=== PATIENT | female | born 1985 | race Caucasian/White ===

== ENCOUNTER → 2019-11-27 14:15 | Outpatient (BNVA) | payer OTHER, SELFPAY | PROVIDERS: Family Provider Family Medicine; PCP Family Medicine; Visit Provider Nurse Practitioner Psychiatric/Mental Health | DX: F33.3 Major depressive disorder, recurrent, severe with psychotic symptoms (principal); F43.12 Post-traumatic stress disorder, chronic; F41.1 Generalized anxiety disorder; F17.210 Nicotine dependence, cigarettes, uncomplicated | CPT/HCPCS: 99214 ==

== ENCOUNTER → 2020-01-01 09:15 | Outpatient (BNVA) | payer OTHER, SELFPAY | PROVIDERS: Family Provider Family Medicine; PCP Family Medicine; Visit Provider Nurse Practitioner Psychiatric/Mental Health | DX: F33.3 Major depressive disorder, recurrent, severe with psychotic symptoms (principal); F43.12 Post-traumatic stress disorder, chronic; F41.1 Generalized anxiety disorder; F17.210 Nicotine dependence, cigarettes, uncomplicated | CPT/HCPCS: 99214 ==

== ENCOUNTER → 2020-01-29 08:27 | Outpatient (BNVA) | payer OTHER, SELFPAY | PROVIDERS: Family Provider Family Medicine; PCP Family Medicine; Visit Provider Nurse Practitioner Psychiatric/Mental Health | DX: F33.3 Major depressive disorder, recurrent, severe with psychotic symptoms (principal); F43.12 Post-traumatic stress disorder, chronic; F41.1 Generalized anxiety disorder; F17.210 Nicotine dependence, cigarettes, uncomplicated | CPT/HCPCS: 99213 ==

== ENCOUNTER → 2020-04-22 08:47 | Outpatient (BNVA) | payer OTHER, SELFPAY | PROVIDERS: Family Provider Family Medicine; PCP Family Medicine; Visit Provider Nurse Practitioner Psychiatric/Mental Health | DX: F33.3 Major depressive disorder, recurrent, severe with psychotic symptoms (principal); F43.12 Post-traumatic stress disorder, chronic; F41.1 Generalized anxiety disorder; F17.210 Nicotine dependence, cigarettes, uncomplicated | CPT/HCPCS: 99214 ==

== ENCOUNTER → 2020-05-21 07:33 | Outpatient (BNVA) | payer OTHER, SELFPAY | PROVIDERS: Family Provider Family Medicine; PCP Family Medicine; Visit Provider Nurse Practitioner Psychiatric/Mental Health | DX: F33.3 Major depressive disorder, recurrent, severe with psychotic symptoms (principal); F43.12 Post-traumatic stress disorder, chronic; F41.1 Generalized anxiety disorder; F17.210 Nicotine dependence, cigarettes, uncomplicated | CPT/HCPCS: 99213 ==

== ENCOUNTER → 2020-08-18 08:26 | Outpatient (BNVA) | payer OTHER, SELFPAY | PROVIDERS: Family Provider Family Medicine; PCP Family Medicine; Visit Provider Nurse Practitioner Psychiatric/Mental Health | DX: F33.3 Major depressive disorder, recurrent, severe with psychotic symptoms (principal); F43.12 Post-traumatic stress disorder, chronic; F41.1 Generalized anxiety disorder; F17.210 Nicotine dependence, cigarettes, uncomplicated | CPT/HCPCS: 99213 ==

== ENCOUNTER → 2020-09-12 07:22 | Outpatient (BNVA) | payer OTHER, SELFPAY | PROVIDERS: Family Provider Family Medicine; PCP Family Medicine; Visit Provider Nurse Practitioner Psychiatric/Mental Health | DX: F33.3 Major depressive disorder, recurrent, severe with psychotic symptoms (principal); F43.12 Post-traumatic stress disorder, chronic; F41.1 Generalized anxiety disorder; F17.210 Nicotine dependence, cigarettes, uncomplicated | CPT/HCPCS: 99214 ==

== ENCOUNTER 2020-11-06 07:35 | Outpatient (RCR) | payer OTHER, SELFPAY | END 2020-11-19 23:00 | disposition home or self-care (01) | LOC: SOT 07:35 | PROVIDERS: PCP Family Medicine; Visit Provider Physician Assistant | DX: M25.531 Pain in right wrist (principal) | CPT/HCPCS: 97110; 97167 ==

== ENCOUNTER → 2020-11-25 09:57 | Outpatient (BNVA) | payer OTHER, SELFPAY | PROVIDERS: PCP Family Medicine; Visit Provider Nurse Practitioner Psychiatric/Mental Health | DX: F33.3 Major depressive disorder, recurrent, severe with psychotic symptoms (principal); F43.12 Post-traumatic stress disorder, chronic; F41.1 Generalized anxiety disorder; F17.210 Nicotine dependence, cigarettes, uncomplicated | CPT/HCPCS: 99214 ==

== ENCOUNTER → 2020-12-04 09:37 | Outpatient (BNVA) | payer OTHER, SELFPAY | PROVIDERS: PCP Family Medicine; Visit Provider Nurse Practitioner Psychiatric/Mental Health | DX: F33.3 Major depressive disorder, recurrent, severe with psychotic symptoms (principal); F43.12 Post-traumatic stress disorder, chronic; F41.1 Generalized anxiety disorder; F17.210 Nicotine dependence, cigarettes, uncomplicated; G47.00 Insomnia, unspecified | CPT/HCPCS: 99214 ==

== ENCOUNTER 2020-12-16 11:45 | Outpatient (CLI) | payer OTHER, SELFPAY ==
--- NOTE | 2020-12-16 11:53 | XR_ITS ---
WS: [id number] Exam: XR lumbar spine min 4V [id number] Date/Time of Exam: 12/16/2020 12:04 PM Reason For Exam: CHRONIC LOW BACK PAIN No fracture or dislocation. Disc spaces appear to be well preserved. Posterior elements are intact. N o instability or subluxation noted on flexion or extension views. Slight dextroscoliosis of may be po sitional. XR/XR lumbar spine min 4V [id number] IMPRESSION: 1. No fracture or dislocation. No instability identified.
== END 2020-12-16 11:46 | disposition home or self-care (01) ==
PROVIDERS: PCP Family Medicine; Visit Provider Family Medicine
DX: M54.5 Low back pain (principal); G89.29 Other chronic pain
CPT/HCPCS: 72110

== ENCOUNTER → 2020-12-26 07:31 | Outpatient (BNVA) | payer OTHER, SELFPAY | PROVIDERS: PCP Family Medicine; Visit Provider Nurse Practitioner Psychiatric/Mental Health | DX: F33.3 Major depressive disorder, recurrent, severe with psychotic symptoms (principal); F43.12 Post-traumatic stress disorder, chronic; F41.1 Generalized anxiety disorder; F17.210 Nicotine dependence, cigarettes, uncomplicated; G47.00 Insomnia, unspecified | CPT/HCPCS: 99214 ==

== ENCOUNTER → 2021-01-21 08:21 | Outpatient (BNVA) | payer OTHER, MEDICAID, SELFPAY | PROVIDERS: PCP Family Medicine; Visit Provider Nurse Practitioner Psychiatric/Mental Health | DX: F31.64 Bipolar disorder, current episode mixed, severe, with psychotic features (principal); F43.12 Post-traumatic stress disorder, chronic; F41.1 Generalized anxiety disorder; F17.210 Nicotine dependence, cigarettes, uncomplicated; Z03.89 Encounter for observation for other suspected diseases and conditions ruled out; G47.00 Insomnia, unspecified | CPT/HCPCS: 99214 ==

== ENCOUNTER 2021-01-22 10:28 | Outpatient (CLI) | payer OTHER, SELFPAY ==
--- NOTE | 2021-01-22 13:11 | ECG_ITS ---
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 Measurements Intervals [place] Rate: 78 P: 45 IA: 177 QRS: 52 QRSD: 89 T: 43 QT: 373 QTc: 426 Interpretive Statements SINUS RHYTHM WITH ARTIFACT NONSPECIFIC T-WAVE ABNORMALITY No previous ECG available for comparison Electronically Signed On 01-22-2021 17:26:08 CDT by Bethany Cr M.D. [id number]
== END 2021-01-22 10:29 | disposition home or self-care (01) ==
PROVIDERS: PCP Family Medicine; Visit Provider Nurse Practitioner Psychiatric/Mental Health
DX: Z01.818 Encounter for other preprocedural examination (principal)
CPT/HCPCS: 93005

== ENCOUNTER → 2021-02-06 11:08 | Outpatient (BNVA) | payer OTHER, SELFPAY | PROVIDERS: PCP Family Medicine; Visit Provider Nurse Practitioner Psychiatric/Mental Health | DX: F31.64 Bipolar disorder, current episode mixed, severe, with psychotic features (principal); F43.12 Post-traumatic stress disorder, chronic; F41.1 Generalized anxiety disorder; F17.210 Nicotine dependence, cigarettes, uncomplicated; Z03.89 Encounter for observation for other suspected diseases and conditions ruled out; G47.00 Insomnia, unspecified | CPT/HCPCS: 99214 ==

== ENCOUNTER → 2021-03-06 09:26 | Outpatient (BNVA) | payer OTHER, SELFPAY | PROVIDERS: PCP Family Medicine; Visit Provider Nurse Practitioner Psychiatric/Mental Health | DX: F31.64 Bipolar disorder, current episode mixed, severe, with psychotic features (principal); F43.12 Post-traumatic stress disorder, chronic; F41.1 Generalized anxiety disorder; F17.210 Nicotine dependence, cigarettes, uncomplicated; G47.00 Insomnia, unspecified | CPT/HCPCS: 99214 ==

== ENCOUNTER → 2022-05-26 10:03 | Outpatient (BNVA) | payer OTHER, SELFPAY | PROVIDERS: PCP Family Medicine; Visit Provider Nurse Practitioner Psychiatric/Mental Health | DX: Z79.899 Other long term (current) drug therapy (principal); F31.64 Bipolar disorder, current episode mixed, severe, with psychotic features; F43.12 Post-traumatic stress disorder, chronic; G47.00 Insomnia, unspecified; F41.1 Generalized anxiety disorder | CPT/HCPCS: 80053; 80061; 83036 ==

== ENCOUNTER 2023-03-16 07:54 | Outpatient (CLI) | payer OTHER, SELFPAY ==
[2023-03-16 08:42] LABS: Estmated Average Glucose 120; Hemoglobin A1C 5.8 % (4.0-6.0)
[2023-03-16 08:58] LABS: Alanine Aminotransferase 20 U/L (0-33); Alkaline Phosphatase 117 U/L (35-105); Aspartate Amino Transferase 21 U/L (0-32); Blood Urea Nitrogen 7 mg/dL (6-20); Calcium 9.1 mg/dL (8.5-10.5); Carbon Dioxide 23 mmol/L (22-29); Chloride 101 mmol/L (98-107); Chol HDL Ratio 3.71 mg/dL (0.0-4.40); Cholesterol 156 mg/dL (0-200); Globulin 3.4 g/dL (1.3-4.6); Glomerular Filtration Rate 94.2 mL/min (90-130); Glucose 133 mg/dL (65-115); HDL Cholesterol 42 mg/dL (60-100); LDL Cholesterol Calculated 95 mg/dL (50-129); LDL HDL Ratio 2.26 RATIO (0.00-3.22); Osmolality Calculated 280 mOsm/kg (285-295); Sodium 135 mmol/L (136-145); Total Bilirubin 0.3 mg/dL (0.15-1.2); Total Protein 7.4 g/dL (6.6-8.7); Triglycerides 93 mg/dL (0-150)
== END 2023-03-16 07:55 | disposition home or self-care (01) ==
LOC: LAB 07:59
PROVIDERS: PCP Family Medicine; Visit Provider Nurse Practitioner Psychiatric/Mental Health
DX: R94.31 Abnormal electrocardiogram [ECG] [EKG] (principal); Z79.899 Other long term (current) drug therapy
CPT/HCPCS: 36415; 80053; 80061; 83036; 93005

== ENCOUNTER 2023-04-21 10:01 | Emergency (ER) | payer MEDICAID, SELFPAY ==
[2023-04-21 10:03] VITALS: BP 154/97; PULSE 74; RESP 16; TEMP 36.7; O2SAT 95; BMI 58.6
--- NOTE | 2023-04-21 10:12 | ECG_ITS ---
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 Measurements Intervals [place] Rate: 71 P: 29 PA: 153 QRS: 48 QRSD: 98 T: 55 QT: 408 QTc: 444 Interpretive Statements SINUS RHYTHM WITH OCCASIONAL VENTRICULAR PREMATURE COMPLEXES Compared to ECG 03/16/2023 08:25:12 Ventricular premature complex(es) now present Sinus arrhythmia no longer present T-wave abnormality no longer present Electronically Signed On 04-21-2023 11:22:43 CDT by Bethany Cr M.D. [id number]
[2023-04-21 11:37] LABS: Basophils # 0.1 10^3/uL (0.0-0.1); Basophils % 0.5 %; Eosinophils # 0.3 10^3/uL (0.0-0.8); Eosinophils % 2.8 %; Hematocrit 37.6 % (37.0-47.0); Hemoglobin 11.7 g/dL (11.5-15.3); Lymphocytes # 2.6 10^3/uL (0.8-4.8); Mean Corpuscular HGB Conc 31.1 g/dL (30.0-36.0); Mean Corpuscular Hemoglobin 27.5 pg (28.0-34.0); Mean Corpuscular Volume 88.5 fl (81-99); Mean Platelet Volume 9.5 fL (7.4-10.4); Monocytes # 0.7 10^3/uL (0.2-0.9); Monocytes % 5.9 %; Neutrophils # 7.67 10^3/uL (1.8-7.7); Neutrophils % 67.4 %; Nucleated Red Blood Cells % 0 %; Platelet Count 353 10^3/cmm (130-400); Red Blood Count 4.25 10^6/uL (4.1-5.3); Red Cell Distribution Width 14.5 % (12.1-15.1); White Blood Count 11.4 10^3/uL (4.0-10.0)
[2023-04-21 11:52] LABS: HCG, Serum Qual Negative (Negative)
[2023-04-21 12:03] LABS: Alanine Aminotransferase 19 U/L (0-33); Albumin Level 4.1 g/dL (3.5-5.2); Alkaline Phosphatase 102 U/L (35-105); Anion Gap 14.6 (5-19); Aspartate Amino Transferase 18 U/L (0-32); Blood Urea Nitrogen 9 mg/dL (6-20); Calcium 9.3 mg/dL (8.5-10.5); Carbon Dioxide 25 mmol/L (22-29); Chloride 101 mmol/L (98-107); Globulin 3.3 g/dL (1.3-4.6); Glomerular Filtration Rate 94.2 mL/min (90-130); Glucose 119 mg/dL (65-115); Osmolality Calculated 284 mOsm/kg (285-295); Potassium 3.6 mmol/L (3.5-5.1); Sodium 137 mmol/L (136-145); Thyroid Stimulating Hormone 2.07 uIU/mL (0.27-4.20); Total Bilirubin 0.3 mg/dL (0.15-1.2); Total Protein 7.4 g/dL (6.6-8.7)
[2023-04-21 12:36] LABS: Troponin(5th) Baseline 7 ng/L (0-10)
--- NOTE | 2023-04-21 12:50 | W.ED.CHESTPA ---
HPI - Chest Pain General: Chief Complaint: Chest Pain Stated Complaint: irregular hr Time Seen by Provider: 04/21/23 12:36 Source: patient Mode of arrival: ambulatory Limitations: no limitations History of Present Illness: Patient is a 37-year-old female presents to ED today with a complaint of heart palpitations intermittently over the past 3 months or so. Patient states she will have episodes lasting a few minutes of heart palpitations and feeling like her heart is fluttering and beating hard. She states she feels short of breath only when symptoms are present. In between episodes she is completely asymptomatic. She reportedly followed up with her primary care provider thought they might be related to anxiety so started her on BuSpar. She feels like symptoms worsened so this medication was discontinued. Patient is not having any symptoms at time of initial examination. She states she sought medical evaluation today because palpitations seem to be more frequent over the past few days. Patient states she does have a cardiology appointment scheduled for next month. MD complaint: other (palpitations) Onset (ago): month(s) Timing of current episode: episodic Prior episodes: Yes Onset: during rest Pain radiation: none Severity: mild Quality: other (palpitations) Relieving factors: nothing Exacerbating factors: nothing Associated symptoms: Reports dyspnea (only during episodes of palpitations) and palpitations; Deny fever(s), nausea, syncope or vomiting Treatment prior to arrival: none Risk Factors: Coronary artery disease risk factors: none Thoracic aortic dissection risk factors: none Related Data: On Oral Contraceptives: No Review of Systems Const: Denies: fever(s), chills, body aches, fatigue or malaise Card: Reports: palpitations; Denies: chest pain, irregular heart rhythm, edema, swelling of feet/ankles, lightheadedness, syncope, pre-syncope, dyspnea on exertion, orthopnea, leg pain with exertion or acrocyanosis Resp: Reports: dyspnea (only during episodes of palpitations); Denies: productive cough, non-productive cough, pain on inspiration or chest congestion GI: Denies: nausea or vomiting Neuro: Denies: headache(s) or dizziness PFS ED PFSH: Medical History Bipolar disorder, current episode mixed, severe, with psychotic features Chronic post-traumatic stress disorder Generalized anxiety disorder Insomnia Psychiatric care Unresolved grief Sudden loss of 3 yr old niece to cancer Social History Smoking and tobacco status: former smoker Quit status (tobacco): has quit using tobacco Year quit tobacco: 2020 Former quit date comment: Patient stopped smoking June 2021 Second hand smoke exposure: Yes Physical Exam Const: COMMON NORMALS: no acute distress, patient oriented x3, no limitations and alert GENERAL APPEARANCE: cooperative NUTRITIONAL APPEARANCE: obese morbidly obese (BMI over 58) ORIENTATION/CONSCIOUSNESS: Yes awake, Yes oriented to person, Yes oriented to place and Yes oriented to time Neck/C-Spine: COMMON NORMALS: no JVD Resp: COMMON NORMALS: normal respiratory effort and clear to auscultation bilaterally AUSCULTATION: clear to auscultation bilaterally Cardio: COMMON NORMALS: no JVD, regular rate and regular rhythm RATE: regular rate RHYTHM: regular rhythm Extremity: COMMON NORMALS: no clubbing, cyanosis or edema, no calf tenderness and no pedal edema Neuro: KEMAR COMA SCALE: document GCS findings [place] coma scale eye opening: Spontaneous [place] coma scale verbal response: Orientated [place] coma scale motor response: Obey commands Kemar coma scale total score: 15 COMMON NORMALS: patient oriented x3 SENSORIUM/ORIENTATION: Yes alert, Yes oriented to person, Yes oriented to place and Yes oriented to time Skin: COMMON NORMALS: no rashes or lesions noted GENERAL SKIN EXAM: no rashes or lesions noted Course Vital Signs: Vital signs: Vital Signs Temperature 98.0 F 04/21/23 10:03 Pulse Rate 71 04/21/23 13:07 Respiratory Rate 16 04/21/23 10:03 Blood Pressure 142/108 04/21/23 13:07 Pulse Oximetry 96 04/21/23 13:07 Oxygen Delivery Me thod Room Air 04/21/23 13:07 MDM - Chest Pain Medical Decision Making Patient here for intermittent palpitations over the past 3 months or so. Blood work here including CBC, CMP, TSH and troponins are negative. EKG showing sinus rhythm with occasional PVCs. Patient has a cardiology appointment scheduled for next month. I will place her on metoprolol 25 mg twice daily and she can follow-up as scheduled with cardiology. Return ED precautions given. Lab Data 04/21/23 11:27 04/21/23 11:27 Laboratory Results WBC 11.4 10^3/uL (4.0-10.0) H 04/21/23 11: RBC 4.25 10^6/uL (4.1-5.3) 04/21/23 11:27 Hgb 11.7 g/dL (11.5-15.3) 04/21/23 11:27 Hct 37.6 % (37.0-47.0) 04/21/23 11:27 MCV 88.5 fl (81-99) 04/21/23 11:27 MCH 27.5 pg (28.0-34.0) L 04/21/23 11:27 MCHC 31.1 g/dL (30.0-36.0) 04/21/23 11:27 RDW 14.5 % (12.1-15.1) 04/21/23 11:27 Plt Count 353 10^3/cmm (130-400) 04/21/23 11:27 MPV 9.5 fL (7.4-10.4) 04/21/23 11:27 Neut % (Auto) 67.4 % 04/21/23 11:27 Lymph % (Auto) 23.0 % 04/21/23 11:27 [place] % (Auto) 5.9 % 04/21/23 11:27 Eos % (Auto) 2.8 % 04/21/23 11:27 Baso % (Auto) 0.5 % 04/21/23 11:27 Neut # (Auto) 7.67 10^3/uL (1.8-7.7) 04/21/23 11:27 Lymph # (Auto) 2.6 10^3/uL (0.8-4.8) 04/21/23 11:27 [place] # (Auto) 0.7 10^3/uL (0.2-0.9) 04/21/23 11:27 Eos # (Auto) 0.3 10^3/uL (0.0-0.8) 04/21/23 11:27 Baso # (Auto) 0.1 10^3/uL (0.0-0.1) 04/21/23 11:27 Nucleated RBC % (auto) 0 % 04/21/23 11:27 Nucleated RBCs # 0.0 /100WBC 04/21/23 11:27 Sodium 137 mmol/L (136-145) 04/21/23 11:27 Potassium 3.6 mmol/L (3.5-5.1) 04/21/23 11:27 Chloride 101 mmol/L (98-107) 04/21/23 11:27 Carbon Dioxide 25 mmol/L (22-29) 04/21/23 11:27 Anion Gap 14.6 (5-19) 04/21/23 11:27 BUN 9 mg/dL (6-20) 04/21/23 11:27 Creatinine 0.7 mg/dL (0.5-0.9) 04/21/23 11:27 GFR Calculation 94.2 mL/min (90-130) 04/21/23 11:27 Glucose 119 mg/dL (65-115) H 04/21/23 11:27 Calculated Osmolality 284 mOsm/kg (285-295) L 04/21/23 11:27 Calcium 9.3 mg/dL (8.5-10.5) 04/21/23 11:27 Total Bilirubin 0.3 mg/dL (0.15-1.2) 04/21/23 11:27 AST 18 U/L (0-32) 04/21/23 11:27 ALT 19 U/L (0-33) 04/21/23 11:27 Alkaline Phosphatase 102 U/L (35-105) 04/21/23 11:27 Troponin T Baseline 7 ng/L (0-10) 04/21/23 11:27 Total Protein 7.4 g/dL (6.6-8.7) 04/21/23 11:27 Albumin 4.1 g/dL (3.5-5.2) 04/21/23 11:27 Globulin 3.3 g/dL (1.3-4.6) 04/21/23 11:27 TSH 2.07 uIU/mL (0.27-4.20) 04/21/23 11:27 HCG, Qual Negative (Negative) 04/21/23 11:27 Discharge Plan Discharge Patient Disposition: Home Clinical Impression: Palpitations Condition: Stable Prescriptions: New metoprolol tartrate 25 mg tablet 25 mg PO BID Qty: 60 0RF No Action pantoprazole [Protonix] 20 mg tablet,delayed release (DR/EC) 20 mg PO DAILY lurasidone [Latuda] 20 mg tablet 20 mg PO .6 pm Qty: 30 1RF Rx Instructions: Take one tablet at 6 pm, must administer with food (at least 350 calories) Discharge Orders: Discharge ED (Routine); Ordered 04/21/23 Ordered By: Belen Mora Referrals: Lambert Wagner MD [Primary Care Provider] - Patient Instructions: Heart Palpitations (DC) Activity Restrictions/Additional Instructions: As we discussed please continue current plan for follow-up with cardiology next month. We will start you on a medication to hopefully reduce the amount/episodes of palpitations you are having. You may monitor blood pressure at home-you need to discontinue medication for any unwanted side effects or if blood pressure runs below 110/70 or if you begin feeling lightheaded or dizzy. Coding Level of Care Code ED Platform Power Technician for Diana Bledsoe
--- NOTE | 2023-04-21 13:01 | PC.NURSE ---
Assumed care at 1300.
[2023-04-21 13:07] VITALS: BP 142/108; PULSE 71; O2SAT 96
[2023-04-21 13:28] VITALS: BP 152/108; PULSE 74; O2SAT 95
== END 2023-04-21 13:30 | disposition home or self-care (01) ==
PROVIDERS: Family Medicine; Emergency Provider Physician Assistant; PCP Family Medicine
DX: R00.2 Palpitations (principal); Z87.891 Personal history of nicotine dependence
CPT/HCPCS: 36415; 80053; 84443; 84484; 84703; 85025; 93005; 99285

== ENCOUNTER 2023-05-31 11:49 | Outpatient (CLI) | payer MEDICAID, SELFPAY ==
--- NOTE | 2023-05-31 12:00 | USCV_ITS ---
Concepción Mendoza Age: 37 Gender: F : 1985 Exam Date: 05/31/2023 12:00 Ordering Phys: Jay Bruce M.D ([email or web address]) Technologist: JESUS Exam Location: [facility] – [place] Indication: CHEST PAIN AND SOB BP: 130 / 80 HR: 61 Rhythm: Sinus Technical Quality: Adequate MEASUREMENTS (Male / Female) Normal Values 2D ECHO LV Diastolic Diameter PLAX 5.0 cm 4.2 - 5.9 / 3.9 - 5.3 cm LV Systolic Diameter PLAX 2.5 cm LV Chamber Size 2.6 cm IVS Diastolic Thickness 0.9 cm 0.6 - 1.0 / 0.6 - 0.9 cm IVS Systolic Thickness 1.3 cm LVPW Diastolic Thickness 0.9 cm 0.6 - 1.0 / 0.6 - 0.9 cm LVPW Systolic Thickness 1.7 cm RV Chamber Size 2.8 cm LVOT Diameter 2.0 cm LV Ejection Fraction 2D Teich 79.7 % LV Ejection Fraction MOD 2C 24.6 % LV Ejection Fraction 2C AL 26.9 % LA Diameter 2.7 cm LA Width 2.7 cm LA Height 4.6 cm RA Width 3.0 cm RA Height 3.7 cm Aorta at Sinotubular Diameter 3.0 cm IVC Diameter 1.7 cm M-MODE Aortic Annulus Diameter 3.7 cm LA Ao Ratio MM 0.9 MV E Point Septal Separation 0.8 cm DOPPLER AV Peak Velocity 148.0 cm/s LVOT Peak Velocity 107.0 cm/s AV Area Cont Eq vti 2.2 cm squared AV Area Cont Eq pk 2.3 cm squared MV Area PHT 2.6 cm squared Mitral E to A Ratio 1.8 MV E' Velocity 56.0 cm/s Mitral E to MV E' Ratio 6.4 Mitral E to LV E' Lateral Ratio 5.5 Mitral E to LV E' Septal Ratio 7.7 TR Peak Velocity 154.6 cm/s TR Peak Gradient 9.6 mmHg TR Mean Velocity 117.1 cm/s TR Mean Gradient 6.7 mmHg TR Velocity Time Integral 39.5 cm TV Peak E Velocity 53.0 cm/s Right Atrial Pressure 3.0 mmHg Pulmonary Artery Systolic Pressu 12.6 mmHg RV Acceleration Time 0.2 s RV Ejection Time 0.4 s RV AcT/ET 0.5 FINDINGS Left Ventricle Left ventricle is normal size. LV systolic function is grossly normal. Regional wall motion abnormalities cannot be accurately assessed because of poor ultrasonic windows Right Ventricle Grossly normal Right Atrium Normal in size Left Atrium Normal in size Mitral Valve Grossly normal Aortic Valve Grossly normal. No significant stenosis or regurgitation. Tricuspid Valve Trace tricuspid regurgitation. Insufficient TR jet to calculate RVSP Pulmonic Valve Not well visualized Pericardium Normal Aorta Normal in size IVC Normal in size CONCLUSIONS Technically limited quality echocardiogram because of poor ultrasonic windows. LV systolic function is grossly normal. Trace tricuspid regurgitation No comparison studies are available Jay Bruce MD (Electronically Signed) Final Date: 13 June 2023 11:05 S
== END 2023-05-31 11:50 | disposition home or self-care (01) ==
PROVIDERS: PCP Family Medicine; Visit Provider Internal Medicine
DX: R06.02 Shortness of breath (principal); R07.9 Chest pain, unspecified
CPT/HCPCS: 93306

== ENCOUNTER 2023-10-28 12:39 | Emergency (ER) | payer OTHER, SELFPAY ==
[2023-10-28 12:47] VITALS: BP 183/103; PULSE 88; RESP 18; TEMP 36.7; O2SAT 97; BMI 55.0
[2023-10-28 12:59] VITALS: BP 183/103; PULSE 97; RESP 21; O2SAT 97
--- NOTE | 2023-10-28 13:06 | ED.C_ITS ---
HPI - Psych 2 General: Chief Complaint: Psychiatric Symptoms Stated Complaint: Sent over for possible manic episode Time Seen by Provider: 10/28/23 12:45 Source: patient Mode of arrival: ambulatory Limitations: no limitations History of Present Illness: Patient is a 38-year-old female who states she was told to come to the ED by [facility] for evaluation/treatment of manic-like symptoms. Patient states over the past several days she has been sleeping less, eating less, spending a lot of money, seems impulsive, and states yesterday she randomly left her . Patient has reported history of bipolar and has had manic-like symptoms previously. She states she takes Latuda for her bipolar. Patient is not suicidal or homicidal. No hallucinations. She states she does not want to be admitted to [facility]. MD complaint: other (told to come to ED for manic like symptoms) History of same: Yes Relieving factors: none Exacerbating factors: none Associated symptoms: Deny auditory hallucinations, visual hallucinations, homicidal ideation or suicidal ideation Treatments prior to arrival: none Review of Systems 2 Const: Denies: fever(s) or chills Card: Denies: chest pain, palpitations, lightheadedness or syncope Resp: Denies: dyspnea GI: Denies: abdominal pain, nausea, vomiting or diarrhea Skin/Breast: Denies: rash Neuro: Denies: headache(s) Psych: Reports: anxiety, sleeping less and change in appetite; Denies: visual hallucinations, auditory hallucinations, suicidal ideation or homicidal ideation PFS ED 2 PFSH: Medical History Habitual self-excoriation Generalized anxiety disorder with panic attacks Unresolved grief Sudden loss of 3 yr old niece to cancer Psychiatric care Bipolar disorder, current episode mixed, severe, with psychotic features Insomnia Chronic post-traumatic stress disorder Social History Smoking and tobacco/nicotine status: former use of tobacco/nicotine Quit status (tobacco/nicotine): has quit using Year quit tobacco: 2020 Former quit date comment: Patient stopped smoking June 2021 Second hand smoke exposure: Yes Physical Exam 2 Const: COMMON NORMALS: no acute distress, patient oriented x3, alert and well nourished GENERAL APPEARANCE: cooperative and well kempt Resp: COMMON NORMALS: normal respiratory effort and clear to auscultation bilaterally AUSCULTATION: clear to auscultation bilaterally Cardio: COMMON NORMALS: regular rate and regular rhythm RATE: regular rate RHYTHM: regular rhythm Neuro: COMMON NORMALS: patient oriented x3, moves all extremities, no focal motor deficits and no sensory deficits noted SENSORIUM/ORIENTATION: Yes alert Psych: COMMON NORMALS: mental status grossly normal, Normal thought process present, cooperative, normal affect, speech normal, activity/motor behavior normal and denies hallucinations APPEARANCE: Yes grossly normal and Yes well kempt ATTITUDE: Yes calm ACTIVITY/MOTOR BEHAVIOR: Yes appropriate eye contact and No psychomotor agitation SPEECH: Yes normal speech MOOD & AFFECT: Yes tearful THOUGHT PROCESS: Normal thought process present T HOUGHT CONTENT: Yes Normal thought content present ATTENTION/CONCENTRATION: Y es attention grossly intact and Yes concentration grossly intact M THOR/COGNITION: Yes memory grossly intact and Yes cognition grossly intact I NSIGHT: Good insight present (Psych) JUDGEMENT: Good judgement present (Psych) Course 2 Consultations: Consultation #1: Dr. Garcia-would accept patient if she wants to stay or had affidavit/hold paperwork; later spoke to him and he states she is cleared for discharge Vital Signs: Vital signs: Vital Signs Temperature 98.1 F 10/28/23 12:47 Pulse Rate 97 10/28/23 12:59 Respiratory Rate 21 H 10/28/23 12:59 Blood Pressure 183/103 10/28/23 12:59 Pulse Oximetry 97 10/28/23 12:59 Oxygen Delivery Me thod Room Air 10/28/23 12:59 [facility] - Psych Medical Decision Making Patient here after she was told to come here by [facility] after speaking to her provider at [facility] Gracie Earl. Patient has not said anything to me that is 96able and she states she does not want to be hospitalized. I spoke to Dr. Garcia who was able to contact [facility]/Gracie and based on their conversations with patient they stated they would fax over an affidavit. Dr. Garcia shortly later called me back and stated they would not be sending an affidavit or hold paperwork and that she could go if she wanted. Again she does not want to be hospitalized and she has said nothing to me that I can place her on a hold for. She will be allowed discharge. Of not-BP elevated during her stay. She has chronic HTN and has not taken her Metoprolol today. This will be ordered for her prior to discharge. Lab Data 10/28/23 13:22 10/28/23 13:22 Laboratory Results WBC 6.68 10^3/uL (3.29-11.43) 10/28/23 13:22 RBC 4.29 10^6/uL (3.85-5.65) 10/28/23 13:22 Hgb 12.00 g/dL (11.27-16.99) 10/28/23 13:22 Hct 38.6 % (36-47) 10/28/23 13:22 MCV 90.0 fl (85-98) 10/28/23 13:22 MCH 28.0 pg (27-33) 10/28/23 13:22 MCHC 31.1 g/dL (30-55) 10/28/23 13:22 RDW 14.1 % (12.1-15.1) 10/28/23 13:22 Plt Count 267 10^3/cmm (157-399) 10/28/23 13:22 MPV 9.8 fL (7.4-10.4) 10/28/23 13:22 Neut % (Auto) 71.7 % 10/28/23 13:22 Lymph % (Auto) 16.0 % 10/28/23 13:22 [place] % (Auto) 10.5 % 10/28/23 13:22 Eos % (Auto) 0.6 % 10/28/23 13:22 Baso % (Auto) 0.9 % 10/28/23 13:22 Neut # (Auto) 4.79 10^3/uL (1.8-7.7) 10/28/23 13:22 Lymph # (Auto) 1.1 10^3/uL (0.8-4.8) 10/28/23 13:22 [place] # (Auto) 0.7 10^3/uL (0.2-0.9) 10/28/23 13:22 Eos # (Auto) 0.0 10^3/uL (0.0-0.8) 10/28/23 13:22 Baso # (Auto) 0.1 10^3/uL (0.0-0.1) 10/28/23 13:22 Nucleated RBC % (auto) 0 % 10/28/23 13:22 Nucleated RBCs # 0.0 /100WBC 10/28/23 13:22 Sodium 139 mmol/L (136-145) 10/28/23 13:22 Potassium 3.6 mmol/L (3.5-5.1) 10/28/23 13:22 Chloride 102 mmol/L (98-107) 10/28/23 13:22 Carbon Dioxide 24 mmol/L (22-29) 10/28/23 13:22 Anion Gap 16.6 (5-19) 10/28/23 13:22 BUN 6 mg/dL (6-20) 10/28/23 13:22 Creatinine 0.8 mg/dL (0.5-0.9) 10/28/23 13:22 GFR Calculation 80.3 mL/min (90-130) L 10/28/23 13:22 Glucose 94 mg/dL (65-115) 10/28/23 13:22 Calculated Osmolality 285 mOsm/kg (285-295) 10/28/23 13:22 Calcium 9.3 mg/dL (8.5-10.5) 10/28/23 13:22 Total Bilirubin 0.4 mg/dL (0.15-1.2) 10/28/23 13:22 AST 31 U/L (0-32) 10/28/23 13:22 ALT 33 U/L (0-33) 10/28/23 13:22 Alkaline Phosphatase 132 U/L (35-105) H 10/28/23 13:22 Total Protein 7.8 g/dL (6.6-8.7) 10/28/23 13:22 Albumin 4.1 g/dL (3.5-5.2) 10/28/23 13:22 Globulin 3.7 g/dL (1.3-4.6) 10/28/23 13:22 HCG, Qual Negative (Negative) 10/28/23 13:22 Salicylates < 0.3 mg/dL (3-10) L 10/28/23 13:22 Acetaminophen < 5.0 ug/mL (10-30) L 10/28/23 13:22 Ethyl Alcohol < 10 mg/dL (0-10) 10/28/23 13:22 No radiology studies performed this visit Discharge Plan Discharge Patient Disposition: Home Clinical Impression: Beronica Condition: Stable Prescriptions: No Action divalproex [Depakote] 250 mg tablet,delayed release (DR/EC) 250 mg PO BID Qty: 60 1RF Rx Instructions: Take one tablet twice per day Latuda 20 mg tablet 40 mg PO .6 pm Qty: 60 2RF Rx Instructions: Take two tablets at 6 pm, must administer with food (at least 350 calories) Protonix 40 mg Tablet,Delayed Release (Dr/Ec) 40 mg PO BEDTIME Vitamin D3 10 mcg (400 unit) Tablet 10 mcg PO QAM clonazepam 0.5 mg tablet 0.25 mg PO BID Discharge Orders: Discharge ED (Routine); Ordered 10/28/23 Ordered By: Belen Mora Referrals: Lambert Wagner MD [Primary Care Provider] - Activity Restrictions/Additional Instructions: As we discussed I would recommend following up with your [facility] provider. As you discussed you did not want to be hospitalized today. Coding Level of Care Code ED Cheese Cook for Diana Bledsoe
[2023-10-28 13:38] LABS: Basophils # 0.1 10^3/uL (0.0-0.1); Basophils % 0.9 %; Eosinophils % 0.6 %; Hematocrit 38.6 % (36-47); Lymphocytes # 1.1 10^3/uL (0.8-4.8); Mean Corpuscular HGB Conc 31.1 g/dL (30-55); Mean Platelet Volume 9.8 fL (7.4-10.4); Monocytes # 0.7 10^3/uL (0.2-0.9); Monocytes % 10.5 %; Neutrophils # 4.79 10^3/uL (1.8-7.7); Neutrophils % 71.7 %; Nucleated Red Blood Cells % 0 %; Platelet Count 267 10^3/cmm (157-399); Red Blood Count 4.29 10^6/uL (3.85-5.65); Red Cell Distribution Width 14.1 % (12.1-15.1); White Blood Count 6.68 10^3/uL (3.29-11.43)
[2023-10-28 13:56] LABS: HCG, Serum Qual Negative (Negative)
--- NOTE | 2023-10-28 13:56 | PC.PHAR ---
pt states she takes care of her own medications-pt states no longer takes nac 600mg qam rx written 09/08/23 pt states not taken for a month or so-pt also states she no longer takes metoprolol tartrate 50mg bid or buspar 10mg bid pt states not taken for months
[2023-10-28 14:00] LABS: Alanine Aminotransferase 33 U/L (0-33); Albumin Level 4.1 g/dL (3.5-5.2); Alkaline Phosphatase 132 U/L (35-105); Anion Gap 16.6 (5-19); Aspartate Amino Transferase 31 U/L (0-32); Blood Urea Nitrogen 6 mg/dL (6-20); Calcium 9.3 mg/dL (8.5-10.5); Carbon Dioxide 24 mmol/L (22-29); Chloride 102 mmol/L (98-107); Globulin 3.7 g/dL (1.3-4.6); Glomerular Filtration Rate 80.3 mL/min (90-130); Glucose 94 mg/dL (65-115); Osmolality Calculated 285 mOsm/kg (285-295); Potassium 3.6 mmol/L (3.5-5.1); Sodium 139 mmol/L (136-145); Total Bilirubin 0.4 mg/dL (0.15-1.2); Total Protein 7.8 g/dL (6.6-8.7)
[2023-10-28 14:01] LABS: Acetaminophen < 5.0 ug/mL (10-30); Alcohol Level < 10 mg/dL (0-10); Salicylate < 0.3 mg/dL (3-10)
== END 2023-10-28 15:01 | disposition home or self-care (01) ==
PROVIDERS: Emergency Provider Physician Assistant; PCP Family Medicine
DX: F30.9 Manic episode, unspecified (principal); Z87.891 Personal history of nicotine dependence
CPT/HCPCS: 36415; 80053; 80307; 84703; 85025; 99283

== ENCOUNTER → 2024-01-11 08:08 | Outpatient (BNVA) | payer OTHER, SELFPAY | PROVIDERS: PCP Family Medicine; Visit Provider Nurse Practitioner Psychiatric/Mental Health | DX: Z79.899 Other long term (current) drug therapy (principal) | CPT/HCPCS: 80061; 80164; 83036 ==

== ENCOUNTER → 2024-09-19 10:38 | Outpatient (BNVA) | payer OTHER, SELFPAY | PROVIDERS: PCP Family Medicine; Visit Provider Nurse Practitioner Family | DX: R05.8 Other specified cough (principal) | CPT/HCPCS: 87400; 87426 ==

== ENCOUNTER → 2024-09-30 11:53 | Outpatient (BNVA) | payer OTHER, SELFPAY | PROVIDERS: PCP Family Medicine; Visit Provider Emergency Medicine | DX: N39.0 Urinary tract infection, site not specified (principal) | CPT/HCPCS: 81000 ==

== ENCOUNTER → 2024-10-26 18:11 | Outpatient (BNVA) | payer BC, SELFPAY | PROVIDERS: PCP Family Medicine; Visit Provider Registered Nurse Neonatal Intensive Care | DX: R39.9 Unspecified symptoms and signs involving the genitourinary system (principal) | CPT/HCPCS: 81000; 87086 ==

== ENCOUNTER → 2024-11-14 11:21 | Outpatient (BNVA) | payer OTHER, SELFPAY | PROVIDERS: PCP Family Medicine; Visit Provider Nurse Practitioner Psychiatric/Mental Health | DX: Z79.899 Other long term (current) drug therapy (principal) | CPT/HCPCS: 80053; 80061; 80164; 83036 ==

== ENCOUNTER 2024-12-29 06:17 | Emergency (ER) | payer OTHER, SELFPAY ==
[2024-12-29 06:25] VITALS: BP 170/79; PULSE 78; RESP 20; TEMP 36.5; O2SAT 99; BMI 52.1
--- NOTE | 2024-12-29 06:30 | ECG_ITS ---
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 Measurements Intervals [place] Rate: 67 P: 44 MI: 188 QRS: 65 QRSD: 88 T: 55 QT: 417 QTc: 443 Interpretive Statements SINUS RHYTHM Compared to ECG 04/21/2023 10:12:28 Ventricular premature complex(es) no longer present Electronically Signed On 12-29-2024 17:58:28 LITHOGRAPHIC PLATE MAKER by Jay Bruce M.D. [id number]
[2024-12-29 06:38] VITALS: BP 144/73; PULSE 70; RESP 16; O2SAT 98
--- NOTE | 2024-12-29 06:53 | ED_ITS ---
HPI - Recheck/Abnormal Lab/Rx 2 General: Chief Complaint: Recheck/Abnormal Lab/Rx Stated Complaint: high bp Time Seen by Provider: 12/29/24 06:18 History of Present Illness: 39-year-old female presents to the [facility] ency room with complaints of elevated blood pressure and headache. She was seen in urgent care yesterday and started on metoprolol she is currently on metoprolol tartrate she tells me she is taking once a day. She was also started on hydrochlorothiazide. She takes clonidine as needed 0.2 mg took it yesterday. Swelling she woke up she reports her blood pressures in the 190s by wrist cuff on arrival here is 140 systolic she did take her metoprolol couple of hours ago on arrival here she is doing well headache is began to diminish. Related Data Home Medications ?Medication ?Instructions ?Recorded ?Confirmed clobetasol 0.05 % topical cream 1 applic topical BID P RN Skin 12/29/24 12/29/24 Irritation esomeprazole magnesium 40 mg 40 mg PO BID 12/29/2406/17 capsule,delayed release norethindrone 1 mg-ethinyl 1 tab PO DAILY 12/29/2406/17 estradiol 35 mcg tablet (Nylia) Previous Rx's ?Medication ?Instructions ?Recorded albuterol sulfate 90 mcg/actuation 2 puff inhalation 6 XD PRN 09/19/24 aerosol inhaler (Ventolin HFA) shortness of breath or wheezing #8.5 grams clonazepam 0.5 mg tablet 0.25 mg (1/2 x 0.5 mg) PO BI D #30 10/02/24 tabs clonidine HCl 0.1 mg tablet 0.1 mg PO BID PRN hyperten sive 10/02/24 emergency #60 tabs divalproex 250 mg tablet,delayed 250 mg PO .7 pm #30 t abs 11/27/24 release (Depakote) divalproex 500 mg tablet,delayed 500 mg PO .7 pm #30 t abs 11/27/24 release (Depakote) hydrochlorothiazide 25 mg tablet 25 mg PO QAM #30 tabs 12/28/24 metoprolol tartrate 25 mg tablet 12.5 mg (1/2 x 25 mg) PO BID #30 12/28/24 tabs amlodipine 2.5 mg tablet 2.5 mg PO DAILY #30 tabs 06/17 Allergies Allergy/AdvReac Type Severity Reaction Status Date / Time fluoxetine (From Prozac) Allergy dizzy Verified 12/28/24 15:02 Review of Systems 2 Const: Denies: fever(s) or chills Card: Denies: chest pain Resp: Denies: dyspnea GI: Denies: abdominal pain : Denies: dysuria, urinary frequency or urinary urgency Musc: Denies: neck pain or back pain Skin/Breast: Denies: rash PFSH ED 2 PFSH: Medical History (Updated 12/29/24 @ 09:04 by Jefry Hill DO) HTN (hypertension) with goal to be determined Cigarette nicotine dependence Habitual self-excoriation Generalized anxiety disorder with panic attacks Psychiatric care Bipolar disorder, current episode mixed, severe, with psychotic features Insomnia Chronic post-traumatic stress disorder Social History Smoking and tobacco/nicotine status: never used tobacco/nicotine Quit status (tobacco/nicotine): has quit using Year quit tobacco: 2020 Former quit date comment: Patient stopped smoking June 2021 Second hand smoke exposure: Yes Physical Exam 2 Const: COMMON NORMALS: no acute distress GENERAL APPEARANCE: cooperative and comfortable ORIENTATION/CONSCIOUSNESS: Yes awake, Yes oriented to person, Yes oriented to place and Yes oriented to time HENMT: COMMON NORMALS: normocephalic, atraumatic and hearing grossly normal bilaterally HEAD & SCALP: normocephalic and atraumatic Resp: COMMON NORMALS: normal respiratory effort, No retractions, No use of accessory muscles and clear to auscultation bilaterally AUSCULTATION: clear to auscultation bilaterally Cardio: COMMON NORMALS: regular rate, regular rhythm and No murmurs present (Cardio) RATE: regular rate RHYTHM: regular rhythm GI: COMMON NORMALS: Soft to palpation and No hepatosplenomegaly present A USCULTATION: Yes normoactive bowel sounds PALPATION: Yes Soft to palpation, No Tenderness to palpation present (GI), No Guarding due to palpation present (GI) and Yes No hepatosplenomegaly present Extremity: COMMON NORMALS: normal to inspection, capillary refill normal, no clubbing, cyanosis or edema, no calf tenderness and no pedal edema Neuro: SENSORIUM/ORIENTATION: Yes oriented to person, Yes oriented to place and Yes oriented to time Skin: COMMON NORMALS: no rashes or lesions noted GENERAL SKIN EXAM: no rashes or lesions noted Course 2 Vital Signs: Vital signs: Vital Signs Temperature 97.7 F 12/29/24 06:25 Pulse Rate 68 12/29/24 09:24 Respiratory Rate 16 12/29/24 06:38 Blood Pressure 136/78 12/29/24 09:24 Pulse Oximetry 99 12/29/24 09:24 Oxygen Delivery Me thod Room Air 12/29/24 06:38 MDM - Recheck/Abnormal Lab/Rx Medical Decision Making Recommend stopping the clonidine. Continue the hydrochlorothiazide. It is very important that she take metoprolol half a tablet twice a day. Additionally we will add amlodipine 2.5 mg daily. Follow-up with primary care within the next week to reevaluate blood pressure Medical Records I reviewed the patient's medical records. Lab Data I reviewed the patient's lab results. 12/29/24 07:00 12/29/24 07:00 Laboratory Results WBC 7.97 10^3/uL (3.29-11.43) 12/29/24 07:00 RBC 4.60 10^6/uL (3.85-5.65) 12/29/24 07:00 Hgb 12.80 g/dL (11.27-16.99) 12/29/24 07:00 Hct 41.2 % (36-47) 12/29/24 07:00 MCV 89.6 fl (85-98) 12/29/24 07:00 MCH 27.8 pg (27-33) 12/29/24 07:00 MCHC 31.1 g/dL (30-55) 12/29/24 07:00 RDW 16.0 % (12.1-15.1) H 12/29/24 07:00 Plt Count 322 10^3/cmm (157-399) 12/29/24 07:00 MPV 10.5 fL (7.4-10.4) H 12/29/24 07:00 Neut % (Auto) 55.2 % 12/29/24 07:00 Lymph % (Auto) 32.5 % 12/29/24 07:00 [place] % (Auto) 7.4 % 12/29/24 07:00 Eos % (Auto) 4.0 % 12/29/24 07:00 Baso % (Auto) 0.6 % 12/29/24 07:00 Neut # (Auto) 4.40 10^3/uL (1.8-7.7) 12/29/24 07:00 Lymph # (Auto) 2.6 10^3/uL (0.8-4.8) 12/29/24 07:00 [place] # (Auto) 0.6 10^3/uL (0.2-0.9) 12/29/24 07:00 Eos # (Auto) 0.3 10^3/uL (0.0-0.8) 12/29/24 07:00 Baso # (Auto) 0.1 10^3/uL (0.0-0.1) 12/29/24 07:00 Nucleated RBC % (auto) 0 % 12/29/24 07:00 Nucleated RBCs # 0.0 /100WBC 12/29/24 07:00 Sodium 141 mmol/L (136-145) 12/29/24 07:00 Potassium 3.7 mmol/L (3.5-5.1) 12/29/24 07:00 Chloride 104 mmol/L (98-107) 12/29/24 07:00 Carbon Dioxide 27 mmol/L (22-29) 12/29/24 07:00 Anion Gap 13.7 (5-19) 12/29/24 07:00 BUN 9 mg/dL (6-20) 12/29/24 07:00 Creatinine 0.6 mg/dL (0.5-0.9) 12/29/24 07:00 GFR Calculation 111.3 mL/min (90-130) 12/29/24 07:00 Glucose 93 mg/dL (65-115) 12/29/24 07:00 Calculated Osmolality 290 mOsm/kg (285-295) 12/29/24 07:00 Calcium 8.9 mg/dL (8.5-10.5) 12/29/24 07:00 Total Bilirubin 0.2 mg/dL (0.15-1.2) 12/29/24 07:00 AST 15 U/L (0-32) 12/29/24 07:00 ALT 22 U/L (0-33) 12/29/24 07:00 Alkaline Phosphatase 97 U/L (35-105) 12/29/24 07:00 Total Protein 6.6 g/dL (6.6-8.7) 12/29/24 07:00 Albumin 3.8 g/dL (3.5-5.2) 12/29/24 07:00 Globulin 2.8 g/dL (1.3-4.6) 12/29/24 07:00 HCG, Qual Negative (Negative) 12/29/24 07:00 Urine Color Yellow (Yellow) 12/29/24 08:05 Urine Appearance Clear (CLEAR) 12/29/24 08:05 Urine pH 7.0 (5-7) 12/29/24 08:05 Ur Specific [place] 1.013 (1.005-1.030) 12/29/24 08:05 Urine Protein Negative (Negative) 12/29/24 08:05 Urine Glucose (UA) Negative (Normal) 12/29/24 08:05 Urine Ketones Negative (Negative) 12/29/24 08:05 Urine Blood Negative (Negative) 12/29/24 08:05 Urine Nitrate Negative (Negative) 12/29/24 08:05 Urine Bilirubin Negative (Negative) 12/29/24 08:05 Urine Urobilinogen 0.2 mg/dL (Negative) 12/29/24 08:05 Ur Leukocyte Esterase Negative (Negative) 12/29/24 08:05 Urine RBC 0-2 /hpf (0-2) 12/29/24 08:05 Urine WBC 0-5 /hpf (0-5) 12/29/24 08:05 Ur Squamous Epith Cells 6-10 /hpf (0-5) 12/29/24 08:05 Amorphous Sediment Not Reportable 12/29/24 08:05 Urine Bacteria Trace /hpf (NONE) 12/29/24 08:05 Hyaline Casts 0-4 /lpf H 12/29/24 08:05 No radiology studies performed this visit Discharge Plan Discharge Patient Disposition: Home Clinical Impression: Hypertension Condition: Stable Prescriptions: New amlodipine 2.5 mg tablet 2.5 mg PO DAILY Qty: 30 0RF No Action clonidine HCl 0.1 mg tablet 0.1 mg PO BID PRN (Reason: hypertensive emergency) Qty: 60 1RF Rx Instructions: for systolic 160 clonazepam 0.5 mg tablet 0.25 mg PO BID Qty: 30 3RF albuterol sulfate [Ventolin HFA] 90 mcg/actuation HFA aerosol inhaler 2 puff inhalation 6XD PRN (Reason: shortness of breath or wheezing) Qty: 8.5 0RF hydrochlorothiazide 25 mg tablet 25 mg PO QAM Qty: 30 1RF metoprolol tartrate 25 mg tablet 12.5 mg PO BID Qty: 30 1RF divalproex [Depakote] 250 mg tablet,delayed release (DR/EC) 250 mg PO .7 pm Qty: 30 6RF Rx Instructions: along with 500mg [id number] total divalproex [Depakote] 500 mg tablet,delayed release (DR/EC) 500 mg PO .7 pm Qty: 30 6RF Rx Instructions: along with 250mg [id number] total clobetasol 0.05 % cream 1 applic TOPICAL BID PRN (Reason: Skin Irritation) esomeprazole magnesium 40 mg capsule,delayed release(DR/EC) 40 mg PO BID Nylia 35 (28) 1-35 mg-mcg tablet 1 tab PO DAILY Discharge Orders: Discharge ED (Routine); Ordered 12/29/24 Ordered By: Jefry Hill Referrals: Barbara Castle MD [Primary Care Provider] - Discharge Diet: Usual diet Discharge Activity: Resume usual activity Patient Instructions: Opioid Safety, Pain Management Activity Restrictions/Additional Instructions: Thank you for choosing [facility] for your healthcare needs today. It is very important that you follow up as instructed or that you return to the Emergency Department should you have concerns or if your condition changes or worsens in any way. Recommend stopping the clonidine. Continue the hydrochlorothiazide. It is very important that you take metoprolol half a tablet twice a day. Additionally we will add amlodipine 2.5 mg daily. You should follow-up with your primary care physician within the next week to reevaluate your blood pressure. Labs and EKG done today in the emergency room did not show any clinically significant abnormalities. 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
[2024-12-29 07:12] LABS: Basophils # 0.1 10^3/uL (0.0-0.1); Basophils % 0.6 %; Eosinophils # 0.3 10^3/uL (0.0-0.8); Hematocrit 41.2 % (36-47); Lymphocytes # 2.6 10^3/uL (0.8-4.8); Lymphocytes % 32.5 %; Mean Corpuscular HGB Conc 31.1 g/dL (30-55); Mean Corpuscular Hemoglobin 27.8 pg (27-33); Mean Corpuscular Volume 89.6 fl (85-98); Mean Platelet Volume 10.5 fL (7.4-10.4); Monocytes # 0.6 10^3/uL (0.2-0.9); Monocytes % 7.4 %; Neutrophils % 55.2 %; Nucleated Red Blood Cells % 0 %; Platelet Count 322 10^3/cmm (157-399); White Blood Count 7.97 10^3/uL (3.29-11.43)
[2024-12-29 07:48] LABS: HCG, Serum Qual Negative (Negative)
[2024-12-29 07:56] LABS: Alanine Aminotransferase 22 U/L (0-33); Albumin Level 3.8 g/dL (3.5-5.2); Alkaline Phosphatase 97 U/L (35-105); Anion Gap 13.7 (5-19); Aspartate Amino Transferase 15 U/L (0-32); Blood Urea Nitrogen 9 mg/dL (6-20); Calcium 8.9 mg/dL (8.5-10.5); Carbon Dioxide 27 mmol/L (22-29); Chloride 104 mmol/L (98-107); Creatinine Clr Calc Pharmacy 150.5229; Globulin 2.8 g/dL (1.3-4.6); Glomerular Filtration Rate 111.3 mL/min (90-130); Glucose 93 mg/dL (65-115); Osmolality Calculated 290 mOsm/kg (285-295); Potassium 3.7 mmol/L (3.5-5.1); Sodium 141 mmol/L (136-145); Total Bilirubin 0.2 mg/dL (0.15-1.2); Total Protein 6.6 g/dL (6.6-8.7)
[2024-12-29 08:11] LABS: Add Urine Microscopic? NO
[2024-12-29 08:14] LABS: Bilirubin Urine Negative (Negative); Blood Urine Negative (Negative); Glucose Urine UA Negative (Normal); Ketones Urine Negative (Negative); Leukocyte Esterase Urine Negative (Negative); Nitrate Urine Negative (Negative); Protein Urine Negative (Negative); Specific Gravity, Urine 1.013 (1.005-1.030); Urine Appearance Clear (CLEAR); Urine Color Yellow (Yellow); Urobilinogen Urine 0.2 mg/dL (Negative)
[2024-12-29 08:30] LABS: Charge for UA Resulting for Rev
[2024-12-29 08:32] VITALS: BP 136/78; PULSE 68; O2SAT 97
[2024-12-29 08:48] LABS: Bacteria Urine Trace /hpf; Hyaline Casts Urine 0-4 /lpf; RBC Urine 0-2 /hpf (0-2); WBC Urine 0-5 /hpf (0-5)
[2024-12-29 09:24] VITALS: BP 136/78; PULSE 68; O2SAT 99
== END 2024-12-29 09:28 | disposition home or self-care (01) ==
PROVIDERS: Emergency Provider Family Medicine; PCP Family Medicine
DX: I10 Essential (primary) hypertension (principal); Z87.891 Personal history of nicotine dependence
CPT/HCPCS: 80053; 81003; 84703; 85025; 93005; 99284

== ENCOUNTER → 2025-02-25 11:22 | Outpatient (BNVA) | payer SELFPAY | PROVIDERS: PCP Family Medicine; Visit Provider Nurse Practitioner | DX: I49.3 Ventricular premature depolarization (principal) | CPT/HCPCS: 80053; 81025; 83735; 84443; 85025 ==

== ENCOUNTER 2025-04-29 22:15 | Emergency (ER) | payer OTHER, SELFPAY ==
[2025-04-29 22:20] VITALS: BP 130/84; PULSE 87; RESP 16; TEMP 36.7; O2SAT 97; BMI 49.8
--- NOTE | 2025-04-29 22:27 | ECG_ITS ---
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 Measurements Intervals [place] Rate: 87 P: 52 SD: 181 QRS: 46 QRSD: 97 T: 55 QT: 366 QTc: 442 Interpretive Statements SINUS RHYTHM NONSPECIFIC T-WAVE ABNORMALITY No previous ECG available for comparison Electronically Signed On 04-30-2025 08:17:48 CDT by Jay Bruce M.D. [email or web address]
--- NOTE | 2025-04-29 22:37 | ED_ITS ---
HPI - Dizziness 2 General: Chief Complaint: Dizziness Stated Complaint: Dizzy lightheadness N Time Seen by Provider: 04/29/25 22:36 History of Present Illness: HPI Narrative: Patient presents to the ED with acute onset dizziness that began last night when lying down in bed. The dizziness has progressively worsened throughout the day to the point where the patient felt they might pass out. Patient describes the dizziness as everything was spinning and that their head felt slimy. Associated symptoms include heart palpitations, headache, and nausea. Patient denies fever, chest pain, or vision changes. No history of similar episodes in the past. Patient reports going swimming yesterday. No recent illness, new medications, or significant changes in routine. Patient primarily drinks water but does consume caffeine in the form of Dr. Griffin. Patient continues to feel symptomatic at the time of examination, reporting persistent dizziness and that their head feels like it was a ton. Related Data Home Medications ?Medication ?Instructions ?Recorded ?Confirmed clobetasol 0.05 % topical cream 1 applic topical BID P RN Skin 12/29/24 04/22/25 Irritation loratadine 10 mg tablet (Claritin) 10 mg PO DAILY 01/1504/22/25 Previous Rx's ?Medication ?Instructions ?Recorded albuterol sulfate 90 mcg/actuation 2 puff inhalation 6 XD PRN 09/19/24 aerosol inhaler (Ventolin HFA) shortness of breath or wheezing #8.5 grams esomeprazole magnesium 40 mg 40 mg PO BID #180 caps capsule,delayed release hydrochlorothiazide 25 mg tablet 25 mg PO QAM #90 tabs 01/24/25 divalproex 250 mg tablet,delayed 250 mg PO .7 pm #30 t abs 02/28/25 release (Depakote) divalproex 500 mg tablet,delayed 500 mg PO .7 pm #30 t abs 02/28/25 release (Depakote) clonazepam 0.5 mg tablet 0.25 mg (1/2 x 0.5 mg) PO .C OMPLEX 04/22/25 PRN anxiety 30 days #45 tabs Allergies Allergy/AdvReac Type Severity Reaction Status Date / Time fluoxetine (From Prozac) Allergy dizzy Verified 04/30/25 00:02 Review of Systems 2 General: Reports: 10 or more systems reviewed and unremarkable except in HPI and below [facility]: Medical History Obesity, morbid, BMI 50 or higher Chronic GERD without esophagitis HTN (hypertension) with goal to be determined Cigarette nicotine dependence Habitual self-excoriation Generalized anxiety disorder with panic attacks Psychiatric care Bipolar disorder, current episode mixed, severe, with psychotic features Insomnia Chronic post-traumatic stress disorder Surgical History No pertinent past surgical history Family History Father COPD (chronic obstructive pulmonary disease) Mother Congestive heart failure (CHF) Diabetes mellitus type 1 Hypertension Rheumatoid arthritis Bipolar disorder Social History Smoking and tobacco/nicotine status: never used tobacco/nicotine Second hand smoke exposure: Yes Alcohol intake: never Substance/Drug Use: never Household members: spouse Marital status: Number of children: 2 Highest education level completed: High School Graduate Current occupational status: employed 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 [employer] Female Reproductive History: Date of last menstrual period: 04/21/25 Physical Exam 2 Const: COMMON NORMALS: no acute distress, patient oriented x3, alert and well nourished HENMT: COMMON NORMALS: normocephalic HEAD & SCALP: normocephalic Eye: COMMON NORMALS: Equal, round and reactive pupils present, EOMs intact bilaterally and conjunctivae normal CONJUNCTIVA: Yes conjunctivae normal P UPIL: Yes Equal, round and reactive pupils present Neck/C-Spine: COMMON NORMALS: full ROM, no lymphadenopathy, supple, no meningeal signs, no JVD and Thyroid normal THYROID: Thyroid normal Chest: COMMONS NORMALS: normal inspection of the chest and normal palpation of entire chest wall Resp: COMMON NORMALS: normal respiratory effort, No retractions, No use of accessory muscles, clear to auscultation bilaterally and percussion normal A USCULTATION: clear to auscultation bilaterally PERCUSSION: percussion normal Cardio: COMMON NORMALS: no JVD GI: COMMON NORMALS: Normal to inspection, nondistended, normoactive bowel sounds present, Soft to palpation, non-tender, No hepatosplenomegaly present, no masses and no bruits PALPATION: Yes Soft to palpation and Yes No hepatosplenomegaly present : COMMON NORMALS: Yes no CVA tenderness BLADDER/KIDNEY EXAM: Yes no CVA tenderness Back/Pelvis: COMMON NORMALS: no CVA tenderness Extremity: COMMON NORMALS: normal to inspection, full ROM, capillary refill normal, no joint enlargement, no clubbing, cyanosis or edema, no calf tenderness and no pedal edema Neuro: COMMON NORMALS: patient oriented x3 SENSORIUM/ORIENTATION: Yes alert MENINGEAL SIGNS: Yes no meningeal signs Skin: COMMON NORMALS: no rashes or lesions noted, turgor normal and no jaundice GENERAL SKIN EXAM: no rashes or lesions noted and turgor normal Course 2 Vital Signs: Vital signs: Vital Signs Temperature 98.0 F 04/29/25 22:20 Pulse Rate 85 04/29/25 23:02 Respiratory Rate 22 H 04/29/25 23:02 Blood Pressure 109/83 04/29/25 23:02 Pulse Oximetry 96 04/29/25 23:02 Oxygen Delivery Me thod Room Air 04/29/25 23:02 MDM - Dizziness Medical Decision Making 1. Vertigo, likely peripheral in origin: - Most consistent with benign positional vertigo or inner ear disturbance - No evidence of central neurological etiology based on normal examination and absence of focal neurological deficits - Recommend [id number] meclizine as needed for symptomatic relief - Anticipate symptoms to resolve within a few days 2. Palpitations: - Transient and not present during ED monitoring - Normal EKG and laboratory studies - Likely secondary to vestibular stimulation or anxiety related to vertigo symptoms 3. Disposition: - Patient stable for discharge home with symptomatic management - Follow up with primary care physician if symptoms persist beyond one week - Return to ED for worsening symptoms, particularly new neurological deficits or severe headache Lab Data 04/29/25 22:53 04/29/25 22:53 Laboratory Results WBC 11.94 10^3/uL (3.29-11.43) H 04/29/25 22:53 RBC 4.21 10^6/uL (3.85-5.65) 04/29/25 22:53 Hgb 11.90 g/dL (11.27-16.99) 04/29/25 22:53 Hct 36.2 % (36-47) 04/29/25 22:53 MCV 86.0 fl (85-98) 04/29/25 22:53 MCH 28.3 pg (27-33) 04/29/25 22:53 MCHC 32.9 g/dL (30-55) 04/29/25 22:53 RDW 14.3 % (12.1-15.1) 04/29/25 22:53 Plt Count 368 10^3/cmm (157-399) 04/29/25 22:53 MPV 10.1 fL (7.4-10.4) 04/29/25 22:53 Neut % (Auto) 59.2 % 04/29/25 22:53 Lymph % (Auto) 30.2 % 04/29/25 22:53 [place] % (Auto) 7.9 % 04/29/25 22:53 Eos % (Auto) 1.8 % 04/29/25 22:53 Baso % (Auto) 0.6 % 04/29/25 22:53 Neut # (Auto) 7.07 10^3/uL (1.8-7.7) 04/29/25 22:53 Lymph # (Auto) 3.6 10^3/uL (0.8-4.8) 04/29/25 22:53 [place] # (Auto) 0.9 10^3/uL (0.2-0.9) 04/29/25 22:53 Eos # (Auto) 0.2 10^3/uL (0.0-0.8) 04/29/25 22:53 Baso # (Auto) 0.1 10^3/uL (0.0-0.1) 04/29/25 22:53 Nucleated RBC % (auto) 0 % 04/29/25 22:53 Nucleated RBCs # 0.0 /100WBC 04/29/25 22:53 Sodium 137 mmol/L (136-145) 04/29/25 22:53 Potassium 3.6 mmol/L (3.5-5.1) 04/29/25 22:53 Chloride 98 mmol/L (98-107) 04/29/25 22:53 Carbon Dioxide 27 mmol/L (22-29) 04/29/25 22:53 Anion Gap 15.6 (5-19) 04/29/25 22:53 BUN 11 mg/dL (6-20) 04/29/25 22:53 Creatinine 0.8 mg/dL (0.5-0.9) 04/29/25 22:53 GFR Calculation 79.9 mL/min (90-130) L 04/29/25 22:53 Glucose 99 mg/dL (65-115) 04/29/25 22:53 Calculated Osmolality 283 mOsm/kg (285-295) L 04/29/25 22:53 Calcium 9.5 mg/dL (8.5-10.5) 04/29/25 22:53 Magnesium 1.9 mg/dL (1.7-2.3) 04/29/25 22:53 Total Bilirubin 0.2 mg/dL (0.15-1.2) 04/29/25 22:53 AST 15 U/L (0-32) 04/29/25 22:53 ALT 11 U/L (0-33) 04/29/25 22:53 Alkaline Phosphatase 101 U/L (35-105) 04/29/25 22:53 Troponin T Baseline < 6 ng/L (0-10) 04/29/25 22:53 Total Protein 7.1 g/dL (6.6-8.7) 04/29/25 22:53 Albumin 4.2 g/dL (3.5-5.2) 04/29/25 22:53 Globulin 2.9 g/dL (1.3-4.6) 04/29/25 22:53 Urine Opiates Screen Negative ng/mL (Negative) 04/29/25 22:38 Ur Barbiturates Screen Negative ng/mL (Negative) 04/29/25 22:38 Ur Phencyclidine Scrn Negative ng/mL (Negative) 04/29/25 22:38 Ur Amphetamines Screen Negative ng/mL (Negative) 04/29/25 22:38 U Benzodiazepines Scrn Negative ng/mL (Negative) 04/29/25 22:38 Urine Cocaine Screen Negative ng/mL (Negative) 04/29/25 22:38 U Marijuana (THC) Screen Negative ng/mL (Negative) 04/29/25 22:38 No radiology studies performed this visit Discharge Plan Discharge Patient Disposition: Home Condition: Stable Prescriptions: No Action loratadine [Claritin] 10 mg tablet 10 mg PO DAILY esomeprazole magnesium 40 mg capsule,delayed release(DR/EC) 40 mg PO BID Qty: 180 0RF hydrochlorothiazide 25 mg tablet 25 mg PO QAM Qty: 90 1RF clonazepam 0.5 mg tablet 0.25 mg PO .COMPLEX PRN (Reason: anxiety) 30 Days Qty: 45 0RF Rx Instructions: 0.25 mg orally PRN; 0.25mg in am and 0.5mg qpm divalproex [Depakote] 250 mg tablet,delayed release (DR/EC) 250 mg PO .7 pm Qty: 30 3RF Rx Instructions: along with 500mg [id number] total divalproex [Depakote] 500 mg tablet,delayed release (DR/EC) 500 mg PO .7 pm Qty: 30 3RF Rx Instructions: along with 250mg qk=670sg total albuterol sulfate [Ventolin HFA] 90 mcg/actuation HFA aerosol inhaler 2 puff inhalation 6XD PRN (Reason: shortness of breath or wheezing) Qty: 8.5 0RF clobetasol 0.05 % cream 1 applic TOPICAL BID PRN (Reason: Skin Irritation) Discharge Orders: Discharge ED (Routine); Ordered 04/30/25 Ordered By: Navdeep Baltazar Referrals: Barbara Castle MD [Primary Care Provider, Family Practice] Discharge Diet: Advance as tolerated Discharge Activity: Resume usual activity Patient Instructions: Opioid Safety, Pain Management, Patient Portal & Jewel Instructions Activity Restrictions/Additional Instructions: 1. Rest, fluids. Trial of meclizine if symptoms persist. 2. Make follow up with PCP for recheck in 2-3 days. 3. Return for new or worsening symptoms. 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
[2025-04-29 23:02] VITALS: BP 109/83; PULSE 85; RESP 22; O2SAT 96
[2025-04-29 23:09] LABS: Hematocrit 36.2 % (36-47); Hemoglobin 11.90 g/dL (11.27-16.99); Mean Corpuscular HGB Conc 32.9 g/dL (30-55); Mean Corpuscular Hemoglobin 28.3 pg (27-33); Mean Corpuscular Volume 86.0 fl (85-98); Nucleated Red Blood Cells % 0 %; Platelet Count 368 10^3/cmm (157-399); Red Blood Count 4.21 10^6/uL (3.85-5.65); White Blood Count 11.94 10^3/uL (3.29-11.43)
[2025-04-29 23:17] LABS: PCP Screen Urine Negative (Negative)
[2025-04-29 23:25] LABS: Troponin(5th) Baseline < 6 ng/L (0-10)
[2025-04-29 23:26] LABS: Alanine Aminotransferase 11 U/L (0-33); Albumin Level 4.2 g/dL (3.5-5.2); Alkaline Phosphatase 101 U/L (35-105); Anion Gap 15.6 (5-19); Aspartate Amino Transferase 15 U/L (0-32); Blood Urea Nitrogen 11 mg/dL (6-20); Calcium 9.5 mg/dL (8.5-10.5); Carbon Dioxide 27 mmol/L (22-29); Chloride 98 mmol/L (98-107); Creatinine Clr Calc Pharmacy 109.6471; Globulin 2.9 g/dL (1.3-4.6); Glucose 99 mg/dL (65-115); Magnesium 1.9 mg/dL (1.7-2.3); Osmolality Calculated 283 mOsm/kg (285-295); Potassium 3.6 mmol/L (3.5-5.1); Sodium 137 mmol/L (136-145); Total Protein 7.1 g/dL (6.6-8.7)
[2025-04-30 00:28] VITALS: BP 140/89; PULSE 82; RESP 15; O2SAT 100
== END 2025-04-30 00:30 | disposition home or self-care (01) ==
PROVIDERS: Emergency Provider Family Medicine; PCP Family Medicine
DX: R42 Dizziness and giddiness (principal); R00.2 Palpitations; I10 Essential (primary) hypertension
CPT/HCPCS: 36415; 80053; 80306; 83735; 84484; 85025; 93005; 99284

== ENCOUNTER → 2025-05-28 11:10 | Outpatient (BNVA) | payer OTHER, SELFPAY | PROVIDERS: PCP Family Medicine; Visit Provider Nurse Practitioner Women's Health | DX: Z31.69 Encounter for other general counseling and advice on procreation (principal) | CPT/HCPCS: 82306; 83520; 86592; 86705; 86706; 86709; 86803; 87340; 87806 ==

== ENCOUNTER → 2025-06-18 16:55 | Outpatient (BNVA) | payer OTHER, SELFPAY | PROVIDERS: PCP Family Medicine; Visit Provider Family Medicine | DX: R39.9 Unspecified symptoms and signs involving the genitourinary system (principal) | CPT/HCPCS: 81000 ==

== ENCOUNTER → 2025-07-29 14:03 | Outpatient (BNVA) | payer OTHER, SELFPAY | PROVIDERS: PCP Family Medicine; Visit Provider Family Medicine | DX: R23.3 Spontaneous ecchymoses (principal) | CPT/HCPCS: 85025 ==

== ENCOUNTER 2025-08-19 13:52 | Emergency (ER) | payer OTHER, SELFPAY ==
[2025-08-19 13:54] VITALS: BP 144/97; PULSE 78; RESP 18; TEMP 36.6; O2SAT 100; BMI 48.6
--- NOTE | 2025-08-19 14:00 | XR_ITS ---
WS: [id number] Exam: XR chest 1V portable [id number] Date/Time of Exam: 08/19/2025 2:00 PM Reason For Exam: chest pain No priors. Lungs are clear and fully inflated. Normal cardiomediastinal silhouette and regional bony structures. XR/XR chest 1V portable [id number] IMPRESSION: 1. Negative chest.
--- NOTE | 2025-08-19 14:00 | ECG_ITS ---
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 Measurements Intervals [place] Rate: 80 P: 47 TN: 179 QRS: 41 QRSD: 89 T: 40 QT: 374 QTc: 433 Interpretive Statements SINUS RHYTHM Compared to ECG 04/29/2025 22:29:58 T-wave abnormality no longer present Electronically Signed On 08-22-2025 08:34:39 CDT by Vladimir Abbasi M.D. [email or web address]
--- NOTE | 2025-08-19 14:07 | W.ED.CHESTPA ---
HPI - Chest Pain General: Chief Complaint: Chest Pain Stated Complaint: Chest pain Time Seen by Provider: 08/19/25 14:07 History of Present Illness: 40-year-old female with a history of hypertension, obesity, GERD, anxiety and bipolar disorder who presents to the emergency room with chest pain. This is intermittent and epigastric. She says it is a sharp and squeezing pain. Says it radiates into her back at times. She said she thought she might pass out and felt lightheaded. Related Data Home Medications ?Medication ?Instructions ?Recorded ?Confirmed loratadine 10 mg tablet (Claritin) 10 mg PO DAILY 01/24/25 07/29/25 esomeprazole magnesium 40 mg 40 mg PO BID 07/18/25 07/29/25 capsule,delayed release (Nexium) Previous Rx's ?Medication ?Instructions ?Recorded albuterol sulfate 90 mcg/actuation 2 puff inhalation 6XD PRN 09/19/24 aerosol inhaler (Ventolin HFA) shortness of breath or wheezing #8.5 grams progesterone micronized 100 mg 100 mg PO BEDTIME #90 caps 07/25/25 capsule spironolactone 25 mg tablet 25 mg PO DAILY #90 tabs 07/29/25 estradiol 0.5 mg tablet 0.5 mg PO DAILY #90 tabs 08/14/25 Allergies Allergy/AdvReac Type Severity Reaction Status Date / Time adhesive Allergy ALGY-Rash Verified 08/19/25 14:03 fluoxetine (From Prozac) Allergy dizzy Verified 08/19/25 14:03 Review of Systems Narrative: Constitutional symptoms: Negative except as documented in HPI. Skin symptoms: Negative except as documented in HPI. Eye symptoms: Negative except as documented in HPI. ENMT symptoms: Negative except as documented in HPI. Respiratory symptoms: Negative except as documented in HPI. Cardiovascular symptoms: Negative except as documented in HPI. Gastrointestinal symptoms: Negative except as documented in HPI. Genitourinary symptoms: Negative except as documented in HPI. Musculoskeletal symptoms: Negative except as documented in HPI. Neurologic symptoms: Negative except as documented in HPI. Psychiatric symptoms: Negative except as documented in HPI. Endocrine symptoms: Negative except as documented in HPI. PFS ED PFSH: Medical History (Updated 08/19/25 @ 16:04 by Ana Laura Barajas MD) Hypertension, essential Obesity, morbid, BMI 50 or higher Chronic GERD without esophagitis HTN (hypertension) with goal to be determined Cigarette nicotine dependence Habitual self-excoriation Generalized anxiety disorder with panic attacks Psychiatric care Bipolar disorder, current episode mixed, severe, with psychotic features Insomnia Chronic post-traumatic stress disorder Surgical History No pertinent past surgical history Family History Father COPD (chronic obstructive pulmonary disease) Mother Congestive heart failure (CHF) Diabetes mellitus type 1 Hypertension Rheumatoid arthritis Bipolar disorder Heart disease Grandmother Breast cancer Hypertension Diabetes Denies family history of Colon cancer Ovarian cancer Uterine cancer Thyroid disease Stroke Social History Smoking and tobacco/nicotine status: current some day tobacco/nicotine user cigarettes Second hand smoke exposure: Yes Alcohol intake: never Substance/Drug Use: never Household members: spouse Marital status: Number of children: 2 Highest education level completed: High School Graduate Current occupational status: employed 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 Skin: Warm, dry. Head: Normocephalic, atraumatic. Neck: Supple, trachea midline. Eye: Extraocular movements are intact. Ears, nose, mouth and throat: mucosa moist. Cardiovascular: Regular, Normal peripheral perfusion. Respiratory: Lungs are clear to auscultation, respirations are non-labored, breath sounds are equal, Symmetrical chest wall expansion. Gastrointestinal: Soft, Nontender, Non distended Musculoskeletal: Normal ROM, no deformity. Neurological: Alert and oriented, No focal neurological deficit observed. Psychiatric: Cooperative, appropriate mood & affect. Course Vital Signs: Vital signs: Vital Signs Temperature 97.9 F 08/19/25 13:54 Pulse Rate 76 08/19/25 16:01 Respiratory Rate 16 08/19/25 16:01 Blood Pressure 142/96 08/19/25 16:01 Pulse Oximetry 98 08/19/25 16:01 Oxygen Delivery Me thod Room Air 08/19/25 16:01 MDM - Chest Pain Medical Decision Making Medical decision making: Patient's reason for coming to the emergency room: Chest pain Social determinants: No risk socially. She is employed and . I reviewed the patient's medical record. Last few visits have been 2 family practice and her [facility]. I reviewed the patient's current home meds: No significant regular medications. Alternate historians: None. Differential diagnosis for patient with chest pain includes but is not limited to and based on the above HPI, review of systems and physical exam: Pneumonia. unstable angina. angina. Acute coronary syndrome / [place]. Pulmonary embolism. Costochondritis / musculoskeletal. Pleurisy. Pericarditis. Esophageal spasm. Pancreatis. Cholecystitis. Orders placed to evaluate differential diagnosis based on the above differential, HPI and physical exam EKG: Time 1356. Rate 80. Normal sinus rhythm, No ST-T changes, no ectopy, normal [place] & QRS intervals, This was reviewed and interpreted by myself the ER physician at 1400. Chest x-ray: No acute process. No infiltrate. No pneumothorax. This was reviewed and interpreted by myself the emergency room physician. I also reviewed the radiology report. Lab Review: Laboratory results were reviewed and interpreted by myself the emergency room physician. No leukocytosis. No anemia. No renal failure. Serial cardiac markers are negative. Lipase is negative. Assessment of risk: - Level of risk: Low - Was hospitalization considered? Yes. However heart score is only 1. Serial cardiac markers are negative. Patient can continue workup as an outpatient. Clinical decision support: Heart score is calculated at a 1. She has risk factors of obesity, family history Reexamination: Patient remained stable. No increased work of breathing. No altered mental status. No focal motor deficits. Assessment and plan: Noncardiac chest pain ?Aspirin and Toradol in the emergency room - Discharged home - Discussed plan with patient. Answered any questions. - Evaluation and treatment of this problem were appropriate in the emergency setting. Lab Data 08/19/25 14:19 08/19/25 14:19 Radiology Impressions Chest X-Ray 08/19/25 14:00 IMPRESSION: 1. Negative chest. Laboratory Results WBC 10.93 10^3/uL (3.29-11.43) 08/19/25 14:19 RBC 4.35 10^6/uL (3.85-5.65) 08/19/25 14:19 Hgb 11.80 g/dL (11.27-16.99) 08/19/25 14:19 Hct 37.9 % (36-47) 08/19/25 14:19 MCV 87.1 fl (85-98) 08/19/25 14:19 MCH 27.1 pg (27-33) 08/19/25 14:19 MCHC 31.1 g/dL (30-55) 08/19/25 14:19 RDW 14.6 % (12.1-15.1) 08/19/25 14:19 Plt Count 349 10^3/cmm (157-399) 08/19/25 14:19 MPV 10.7 fL (7.4-10.4) H 08/19/25 14:19 Neut % (Auto) 65.2 % 08/19/25 14:19 Lymph % (Auto) 26.7 % 08/19/25 14:19 [place] % (Auto) 5.7 % 08/19/25 14:19 Eos % (Auto) 1.6 % 08/19/25 14:19 Baso % (Auto) 0.5 % 08/19/25 14:19 Neut # (Auto) 7.12 10^3/uL (1.8-7.7) 08/19/25 14:19 Lymph # (Auto) 2.9 10^3/uL (0.8-4.8) 08/19/25 14:19 [place] # (Auto) 0.6 10^3/uL (0.2-0.9) 08/19/25 14:19 Eos # (Auto) 0.2 10^3/uL (0.0-0.8) 08/19/25 14:19 Baso # (Auto) 0.1 10^3/uL (0.0-0.1) 08/19/25 14:19 Nucleated RBC % (auto) 0 % 08/19/25 14:19 Nucleated RBCs # 0.0 /100WBC 08/19/25 14:19 Sodium 137 mmol/L (136-145) 08/19/25 14:19 Potassium 3.5 mmol/L (3.5-5.1) 08/19/25 14:19 Chloride 100 mmol/L (98-107) 08/19/25 14:19 Carbon Dioxide 22 mmol/L (22-29) 08/19/25 14:19 Anion Gap 18.5 (5-19) 08/19/25 14:19 BUN 7 mg/dL (6-20) 08/19/25 14:19 Creatinine 0.7 mg/dL (0.5-0.9) 08/19/25 14:19 GFR Calculation 92.7 mL/min (90-130) 08/19/25 14:19 Glucose 84 mg/dL (65-115) 08/19/25 14:19 Calculated Osmolality 281 mOsm/kg (285-295) L 08/19/25 14:19 Calcium 9.1 mg/dL (8.5-10.5) 08/19/25 14:19 Total Bilirubin 0.3 mg/dL (0.15-1.2) 08/19/25 14:19 AST 15 U/L (0-32) 08/19/25 14:19 ALT 22 U/L (0-33) 08/19/25 14:19 Alkaline Phosphatase 128 U/L (35-105) H 08/19/25 14:19 Troponin T Baseline < 6 ng/L (0-10) 08/19/25 14:19 Troponin T 120 Minute 6.11 ng/L (0-10) 08/19/25 15:26 Delta Troponin T 0.52191 ABS# (0-10) 08/19/25 15:26 NT-Pro-B Natriuret Pep 98 pg/mL (0-125) 08/19/25 14:19 Total Protein 7.1 g/dL (6.6-8.7) 08/19/25 14:19 Albumin 4.2 g/dL (3.5-5.2) 08/19/25 14:19 Globulin 2.9 g/dL (1.3-4.6) 08/19/25 14:19 Lipase 37 U/L (13-60) 08/19/25 14:19 All radiology interpretation(s) finalized by discharge Clincial Decision Support The following clinical decision support tools were used to aid in care of the patient HEART Score -> History: Slightly Suspicous, EKG: Normal, Age: Less than 45 yrs, Risk Factors: 1 or 2 Risk Factors, Troponin: Baseline Trop <16 ng/L. Resulting HEART Score: 1. Discharge Plan Discharge Patient Disposition: Home Clinical Impression: Non-cardiac chest pain Condition: Stable Prescriptions: No Action loratadine [Claritin] 10 mg tablet 10 mg PO DAILY esomeprazole magnesium [Nexium] 40 mg capsule,delayed release(DR/EC) 40 mg PO BID spironolactone 25 mg tablet 25 mg PO DAILY Qty: 90 1RF albuterol sulfate [Ventolin HFA] 90 mcg/actuation HFA aerosol inhaler 2 puff inhalation 6XD PRN (Reason: shortness of breath or wheezing) Qty: 8.5 0RF progesterone micronized 100 mg capsule 100 mg PO BEDTIME Qty: 90 0RF Rx Instructions: take once daily estradiol 0.5 mg tablet 0.5 mg PO DAILY Qty: 90 1RF Discharge Orders: Discharge ED (Routine); Ordered 08/19/25 Ordered By: Ana Laura Barajas Referrals: Barbara Castle MD [Primary Care Provider, Family Practice] Discharge Diet: Usual diet Discharge Activity: Increase activity as tolerated Patient Instructions: Noncardiac Chest Pain (ED), Opioid Safety, Pain Management, Patient Portal & Jewel Instructions Activity Restrictions/Additional Instructions: Thank you for choosing [facility] for your healthcare needs today. You have been screened and evaluated and felt safe for discharge. Health conditions do change or evolve sometimes and as such it is important that you follow up with your Primary Doctor to be re checked, 3-5 days is a general good time frame for follow up. You are always welcome to return to the ED for re assessment if your symptoms are worsening or you have new concerns Print Language: Welsh Coding Level of Care Code ED Chiropractic Doctor for [facility] Fwd Heart Score HEART Score Components History: Slightly Suspicous EKG: Normal Age: Less than 45 yrs Risk Factors: 1 or 2 Risk Factors Troponin: Baseline Trop <16 ng/L HEART Score RESULT HEART Score: 1
[2025-08-19 14:33] VITALS: BP 144/95; PULSE 77; RESP 16; O2SAT 98
[2025-08-19 14:43] LABS: Hematocrit 37.9 % (36-47); Hemoglobin 11.80 g/dL (11.27-16.99); Mean Corpuscular HGB Conc 31.1 g/dL (30-55); Mean Corpuscular Hemoglobin 27.1 pg (27-33); Mean Corpuscular Volume 87.1 fl (85-98); Nucleated Red Blood Cells % 0 %; Platelet Count 349 10^3/cmm (157-399); Red Blood Count 4.35 10^6/uL (3.85-5.65); White Blood Count 10.93 10^3/uL (3.29-11.43)
[2025-08-19 15:03] LABS: Troponin(5th) Baseline < 6 ng/L (0-10)
[2025-08-19 15:12] VITALS: BP 140/100; PULSE 76; RESP 16; O2SAT 98
[2025-08-19 15:13] LABS: Alanine Aminotransferase 22 U/L (0-33); Albumin Level 4.2 g/dL (3.5-5.2); Alkaline Phosphatase 128 U/L (35-105); Anion Gap 18.5 (5-19); Aspartate Amino Transferase 15 U/L (0-32); Blood Urea Nitrogen 7 mg/dL (6-20); Calcium 9.1 mg/dL (8.5-10.5); Carbon Dioxide 22 mmol/L (22-29); Chloride 100 mmol/L (98-107); Creatinine Clr Calc Pharmacy 122.2347; Globulin 2.9 g/dL (1.3-4.6); Glucose 84 mg/dL (65-115); NT Pro B Type Natriuretic Pept 98 pg/mL (0-125); Osmolality Calculated 281 mOsm/kg (285-295); Potassium 3.5 mmol/L (3.5-5.1); Sodium 137 mmol/L (136-145); Total Protein 7.1 g/dL (6.6-8.7)
[2025-08-19 15:16] LABS: Lipase 37 U/L (13-60)
[2025-08-19 15:53] LABS: Troponin 5 2HR 6.11 ng/L (0-10); Troponin 5 2HR Delta 0.11001 ABS# (0-10)
[2025-08-19 16:01] VITALS: BP 142/96; PULSE 76; RESP 16; O2SAT 98
[2025-08-19 16:11] VITALS: BP 142/96; PULSE 73; RESP 16; O2SAT 98
== END 2025-08-19 16:12 | disposition home or self-care (01) ==
PROVIDERS: Emergency Provider Emergency Medicine; PCP Family Medicine
DX: R07.89 Other chest pain (principal); F17.210 Nicotine dependence, cigarettes, uncomplicated; I10 Essential (primary) hypertension
CPT/HCPCS: 36415; 71045; 80053; 83690; 83880; 84484; 85025; 93005; 96374; 99285; J1885; J9999

== ENCOUNTER 2025-08-23 16:52 | Outpatient (CLI) | payer OTHER, SELFPAY ==
--- NOTE | 2025-08-23 17:00 | US_ITS ---
WS: [id number] US pelv w/transvag [id number] HISTORY: R10.20 - Pelvic and perineal pain unspecified side COMPARISON: None available. Uterus: 7.4 cm x 4.3 cm x 4.3 cm. Normal size anteverted uterus. No fibroid or mass. Heterogeneity within the myometrium. No discrete mass. Small nabothian cyst at the cervix. Endometrium: 0.7 cm. Normal. Right ovary: 2.2 cm x 1.7 cm x 1.7 cm. Normal size and vascularity, no cystic or solid masses. Left ovary: 2.9 cm x 2.4 cm x 1.3 cm. Normal size and vascularity, no cystic or solid masses. No free fluid in the cul-de-sac. US/US pelv w/transvag [id number] IMPRESSION: 1. Normal size uterus. 2. Mild heterogeneity within the myometrium but no fibroid. 3. Normal endometrium. 4. Negative ovaries.
== END 2025-08-23 16:53 | disposition home or self-care (01) ==
LOC: RAD 16:53
PROVIDERS: PCP Family Medicine; Visit Provider Nurse Practitioner Women's Health
DX: R10.20 Pelvic and perineal pain unspecified side (principal); N88.8 Other specified noninflammatory disorders of cervix uteri
CPT/HCPCS: 76830; 76856

== ENCOUNTER 2025-09-12 06:48 | Outpatient (CLI) | payer OTHER, SELFPAY ==
--- NOTE | 2025-09-12 07:15 | US_ITS ---
WS: [id number] RIGHT UPPER QUADRANT ULTRASOUND HISTORY: postprandial epigastric/chest pain COMPARISON: None available. Liver: 17.7 cm in length. Normal size liver and echogenicity. No bile duct dilatation or mass. Portal Vein: Normal hepatopetal flow with monophasic waveform. Gallbladder: Normally distended gallbladder with no stones or wall thickening. CBD: 0.4 cm Pancreas: Normal size and echogenicity. Right kidney: 10.5 cm in length. Normal size and echogenicity. No hydronephrosis or mass. Aorta and IVC: Unremarkable abdominal aorta and IVC. No ascites. US/US abdomen limited [id number] IMPRESSION: Normal right upper quadrant ultrasound.
== END 2025-09-12 06:49 | disposition home or self-care (01) ==
LOC: RAD 06:49
PROVIDERS: PCP Family Medicine; Visit Provider Family Medicine
DX: R10.13 Epigastric pain (principal)
CPT/HCPCS: 76705

== ENCOUNTER 2025-09-20 08:05 | Outpatient (CLI) | payer OTHER, SELFPAY ==
--- NOTE | 2025-09-20 08:00 | MM_ITS ---
WS: [id number] BILATERAL 3D TOMOSYNTHESIS DIGITAL SCREENING MAMMOGRAPHY WITH CAD CLINICAL INFORMATION: screening HISTORY: Screening mammogram. No current complaints. COMPARISON: None. TECHNIQUE: Bilateral CC and MLO views. FINDINGS: Scattered fibroglandular densities bilaterally. No suspicious focal mass, asymmetry, calcifications, or architectural distortion. No evidence of malignancy. MM/MM scr BI tomosynthesis [id number] IMPRESSION: DENSITY: There are scattered areas of fibroglandular density. BI-RADS: 1 - Negative. FOLLOW UP: 1 Year Follow-up Recommend return to annual screening mammography.
== END 2025-09-20 08:06 | disposition home or self-care (01) ==
LOC: RAD 08:05
PROVIDERS: PCP Family Medicine; Visit Provider Family Medicine
DX: Z12.31 Encounter for screening mammogram for malignant neoplasm of breast (principal); R92.323 Mammographic fibroglandular density, bilateral breasts
CPT/HCPCS: 77063; 77067